=== PATIENT | female | born 1940 | race Caucasian/White ===

== ENCOUNTER 2023-05-24 14:40 | Outpatient (CLI) | payer MEDICARE | END 2023-05-24 14:41 | disposition home or self-care (01) | LOC: BICMAMMO 14:40 | PROVIDERS: ATTEND Family Medicine | DX: M85.851 Other specified disorders of bone density and structure, right thigh (principal) | CPT/HCPCS: 77080 ==

== ENCOUNTER 2024-05-11 23:22 | Emergency (ER) | payer MEDICARE ==
[2024-05-12] LABS: #Basophils Less than 0.03 10x3/uL (0.0-0.2); #Eosinophils Less than 0.03 10x3/uL (0.0-0.7); %Basophils 0.1 % (0.0-1.0); %Lymphocytes 6.6 % (21.0-51.0); %Monocytes 7.2 % (0.0-10.0); %Neutrophils 85.9 % (42.0-75.0); Hematocrit 40.5 % (36.0-47.0); Hemoglobin 13.1 g/dL (12.0-16.0); Mean Corpuscular HGB CONC 32.3 g/dL (32.0-36.0); Mean Corpuscular Volume 105.2 fL (78.0-98.0); Mean Platelet Volume 10.5 fL (7.4-10.4); Platelet Count 174 10x3/uL (130-400); RBC Distribution Width 12.9 % (11.5-14.5); Red Blood Cell (RBC) Count 3.85 mill/uL (4.20-5.40)
[2024-05-12 00:35] LABS: ALT (SGPT) 15 U/L (Less than 34); AST (SGOT) 28 U/L (11-34); Albumin 3.6 g/dL (3.1-4.5); Alkaline Phosphatase 70 U/L (40-110); Anion Gap 19 mmol/L (10-20); BUN (Urea Nitrogen) 12 mg/dL (9.8-20.1); Bilirubin, Total 0.4 mg/dL (0.3-1.2); Calc. Creatinine Clearance 0 mL/min (70-130); Calcium 8.9 mg/dL (7.8-10.44); Carbon Dioxide 18 mmol/L (23-31); Chloride 109 mmol/L (98-107); Estimated GFR 88; Globulin 3.1 g/dL (2.4-3.5); Glucose 160 mg/dL (83-110); Potassium 3.9 mmol/L (3.5-5.1); Protein, Total 6.7 g/dL (5.8-8.1); Sodium 142 mmol/L (136-145)
[2024-05-12 00:39] LABS: Troponin I Less than 0.010 ng/mL (< 0.028)
== END 2024-05-12 04:47 | disposition home or self-care (01) ==
LOC: ERS 23:22
DX: R55 Syncope and collapse (principal); F10.129 Alcohol abuse with intoxication, unspecified; Y90.8 Blood alcohol level of 240 mg/100 ml or more; Y92.009 Unspecified place in unspecified non-institutional (private) residence as the place of occurrence of the external cause
CPT/HCPCS: 36415; 70450; 72125; 80053; 80307; 84484; 85025; 93005